=== PATIENT | female | born 1990 | race Caucasian/White ===

== ENCOUNTER 2017-05-16 06:14 | Emergency (ER) | payer OTHER ==
[~2017-05-16] VITALS: Ht 157.5 cm; Wt 63.5 kg
--- NOTE | 2017-05-16 06:40 | NUR ---
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 AOx4, afebrile w/ resp even & unlabored, stach, denies any dizziness, no blurred vision, no sob, no N/V w/ mild discomfort noted. Urine obtained & sent to lab. On continuous monitoring. Pending further jameel ryan MD.
--- NOTE | 2017-05-16 06:47 | NUR ---
DR. RINALDI AT BEDSIDE FOR EVAL.
[2017-05-16] MEDS ORDERED: NORG1TAB3 PO (06:49)
--- NOTE | 2017-05-16 06:50 | NUR ---
Rapid influenza obtained & sent to lab. medicated as ordered. On continuous monitoring.
[2017-05-16 06:57] LABS: APPEARANCE,URINE CLOUDY (CLEAR); BILIRUBIN,URINE NEGATIVE (NEGATIVE); BLOOD, URINE 1+ Ery/uL (NEGATIVE); COLOR,URINE YELLOW (YELLOW); KETONES,URINE NEGATIVE (NEGATIVE); LEUKOCYTE ESTERASE ,URINE 1+ (NEGATIVE); NITRITE, URINE POSITIVE (NEGATIVE); PH,URINE 5.5 (5.0-8.0); PROTEIN,URINE NEGATIVE (NEGATIVE); UGLUCOSE NEGATIVE (NEGATIVE); UROBILINOGEN,URINE 0.2 EU/dL (0.2)
[2017-05-16 07:01] LABS: PREGNANCY TEST URINE QUAL NEGATIVE (NEGATIVE)
--- NOTE | 2017-05-16 07:05 | NUR ---
Report given to FAB Chatterjee for [facility].
--- NOTE | 2017-05-16 07:06 | NUR ---
RECEIVED PATIENT IN STABLE CONDITION. WILL CONTINUE TO MONITOR.
[2017-05-16 07:26] LABS: BACTERIA,URINE Moderate /HPF (None Seen); SQUAMOUS EPITHELIAL CELL,UR Few /HPF (None Seen)
[2017-05-16 08:13] VITALS: BP 106/56
--- NOTE | 2017-05-16 08:14 | NUR ---
Patient discharged to home in stable condition. Prescription handed to patient. Written and verbal after care instructions given. Patient verbalizes understanding of instruction.
== END 2017-05-16 08:14 | disposition home or self-care (01) ==
LOC: ER 06:18
DX: N30.00 Acute cystitis without hematuria (principal); M79.1 Myalgia
CPT/HCPCS: 81001; 84703; 87077; 87086; 87186; 87804 ×2; 99284; A4606; Z7610; 81000-TC; 87400